=== PATIENT | male | born 1995 | race Hispanic/Latino ===

== ENCOUNTER 2016-12-12 12:38 | Emergency (ER) | payer BC ==
[2016-12-12 12:38] VITALS: BMI 20.9
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
[2016-12-12 13:10] VITALS: TEMP 98.2; O2SAT 98
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
[2016-12-12 15:02] VITALS: BP 112/65; PULSE 79; RESP 18
[2016-12-12] MEDS ORDERED: Amoxicillin-Clav 875-125 mg Tab PO STA (15:05)
== END 2016-12-12 16:30 | disposition home or self-care (01) ==
LOC: ED 12:38
DX: S02.2XXA Fracture of nasal bones, initial encounter for closed fracture (principal); S02.92XA Unspecified fracture of facial bones, initial encounter for closed fracture; Y04.0XXA Assault by unarmed brawl or fight, initial encounter

== ENCOUNTER 2016-12-22 10:33 | Day surgery (SDC) | payer BC ==
[2016-12-18 12:27] VITALS: BMI 22.3
[2016-12-22] MEDS ORDERED: Bacitracin Ointment 30 GM TUBE ONE (11:25)
[2016-12-22] MEDS ORDERED: Oxymetazoline 0.05% Nasal Spray (30 ml) NS ONE ×2 (11:25→13:40)
[2016-12-22] MEDS ORDERED: Liquid Adhesive TOP ONE (11:25)
[2016-12-22] MEDS ORDERED: Dexamethasone 4 mg/1 ml ONE (11:25)
[2016-12-22] MEDS ORDERED: LIDOCAIN/EPI 1-0.001% 10ML INJ SOL IJ ONE (11:26)
[2016-12-22] MEDS ORDERED: Propofol 10 mg/ml Inj (20 ML) ONE (13:13)
[2016-12-22] MEDS ORDERED: Midazolam 2 MG/2 ML VIAL ONE (13:14)
[2016-12-22] MEDS ORDERED: Succinylcholine 200 mg/10 ml Inj IV ONE (13:18)
[2016-12-22] MEDS ORDERED: Rocuronium 10 mg/ml (5 ml) ONE (13:29)
[2016-12-22] MEDS ORDERED: Neostigmine Methylsulfate 3mg/3ml Syringe IV ONE (14:37)
[2016-12-22] MEDS ORDERED: Morphine 2 mg/ml ISec IVP PRN ×2 (15:06→15:18)
[2016-12-22] MEDS ORDERED: Lactated Ringer's 1,000 ML IV SCH (15:30)
[2016-12-22 16:08] VITALS: RESP 18; TEMP 97.5; O2SAT 98
[2016-12-22 17:00] VITALS: BP 110/67; PULSE 70
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
== END 2016-12-22 18:57 | disposition home or self-care (01) ==
LOC: SDS 10:33
PROVIDERS: ATTEND Otolaryngology
DX: S02.2XXA Fracture of nasal bones, initial encounter for closed fracture (principal); Y08.89XA Assault by other specified means, initial encounter; Y93.89 Activity, other specified; Y92.9 Unspecified place or not applicable; Y99.9 Unspecified external cause status
CPT/HCPCS: 21336; 88304; J0330; J0690; J1100; J2250; J2270; J2405; J2704; J2710; J2765; J3010; J7120 ×2